=== PATIENT | male | born 1985 | race Hispanic/Latino ===

== ENCOUNTER 2018-12-18 10:34 | Inpatient (IN) | payer OTHER ==
[~2018-12-18] VITALS: Ht 177.8 cm; Wt 128.4 kg
--- OUTSIDE RECORDS SUMMARY | 2018-12-18 10:37 | XMS REPORT | Encounter Summary ---
Author Organization Unknown Address [address] [place] [address] Phone [phone] Care Team Providers Care Boat Builder Name Role Phone Nancy Cheung MD 3 [phone] Reason for Visit Medical Complaint Instructions 1. Acute tonsillitis Lidocaine Viscous 2 % mucosal solution rapid strep group A, throat tonsillitis: care instructions amoxicillin 500 mg tablet culture, respiratory 2. Influenza-like symptoms rapid flu (A+B) 3. Elevated blood-pressure reading without diagnosis of hypertension 4. Body mass index 40+ - severely obese Discussion Note Pt is in NAD; Verbalizes understanding of all instructions with no questions at this time. Plan of Care Patient Instructions Gargle and spit viscous lidocaine as needed for sore throat as directed. Alternate with Ibuprofen and acetaminophen every 4hrs as needed for pain/fever/headaches. Proper hydration and rest. Take antibiotics with food and recommend start a probiotic to avoid GI discomfort. Do not share any utensils/cups, no kissing and change toothbrush after 24-48 hrs of antibiotic use. Take medications as prescribed. Return to clinic or follow up with your PCP within 2-3 days if symptoms worsen as discussed. Recommend monitor BP at home and document, bring BP log to PCP for review. Recommend follow a low sodium diet and exercise 30-45 mins/d 3-4 days a week. Reminders Provider Appointments None recorded. Lab Rapid Flu (A+B) 09/06/2017 [facility] Rapid Strep Group a, Throat 09/06/2017 [facility] Culture, Respiratory 09/06/2017 [facility] Referral None recorded. Procedures None recorded. Surgeries None recorded. Imaging None recorded. Medications Name Start Date amoxicillin 500 mg tablet Take 1 tablet every 12 hours by oral route as directed for 10 days. Lidocaine Viscous 2 % mucosal solution Take 10 mL every 3 hours by oral route as needed. Medications Administered None recorded. Vitals Height Weight BMI Blood Pressure 5 ft 10 in 287 lbs 41.2 kg/m2 130/92 mm[Hg] Lab Results Date Name Specimen Result Interpretation Description Value Range Status Address 09/06/2017 Rapid Strep Group a, Throat Result negative [facility]: [facility] Swab Location Left and Right tonsillar pillars [facility]: [address] [place] [address] Rapid Flu (A+B) Influenza a negative [facility]: [address] [place] [address] Influenza B negative [facility]: [address] [place] [address] Allergies Code Code System Name Reaction Severity Status Onset NKDA Problems None recorded. Procedures Date Name Performed by Hernia Repair W/mesh Information not available Vaccine List Vaccine Type Tdap 08/10/2012 Social History Smoking Status Never Smoker Past Encounters 09/06/2017 Acute Tonsillitis; Influenza-like Symptoms; Elevated Blood-pressure Reading without Diagnosis of Hypertension; Body Mass Index 40+ - Severely Obese Barbara Calderon, [facility]: [address] [place] [address], Ph. History of Present Illness Throat-Oral Complaint Reported By: Patient HPI: Location: throat. Quality: sore throat. Severity: moderate, pain level 6/10. Duration: 2 days. Onset/Timing: sudden. Context: no sick contacts, no foreign travel, non-smoker. Modifying factors: OTC medication. Associated Symptoms: no fever, no headache, no body aches, no sputum production, no shortness of breath, no wheezing, no change in number of pillows needed to sleep at night, no sweats, no significant weight gain, no significant weight loss, no morning cough, no vomiting, no diarrhea, no rash, no nausea, sore throat; body aches Review of Systems:ROS as noted in the HPI Review of Systems Basic Reported By: Patient Physical Exam Adult Basic, 14-21 Yr Male, Adult Female Complete, Adult Male Complete Reported By: Patient Constitutional: General Appearance: obese. Level of Distress: NAD. Ambulation: ambulating normally Psychiatric: Mental Status: active and alert. Orientation: to time, to place, to person Wpd-Phkx-Hifkf-Throat: Ears: no lesions on external ear, no outer ear tenderness, EACs clear, TMs clear. Hearing: no hearing loss. Nose: no lesions on external nose, nares patent, no septal deviation, nasal passages clear, no sinus tenderness, no nasal discharge. Lips, Teeth, and Gums: no mouth or lip ulcers, no bleeding gums, normal dentition. Oropharynx: moist mucous membranes, no exudates, erythema, tonsils enlarged 3+ Neck: Lymph Nodes: no cervical LAD Lungs: Respiratory effort: no dyspnea, no tachypnea, no use of accessory muscles, no intercostal retractions. Auscultation: breath sounds normal Cardiovascular: Heart Auscultation: RRR, no murmurs Neurologic: Gait and Station: normal gait, normal station
--- OUTSIDE RECORDS SUMMARY | 2018-12-18 10:37 | XMS REPORT | Continuity of Care Document ---
Author Author [facility] Interface Address Unknown Phone Unavailable Problems Problem Status Onset Date Classification Date Reported Comments Source Acute tonsillitis 09/06/2017 Diagnosis 09/06/2017 [facility] Influenza-like symptoms 09/06/2017 Diagnosis 09/06/2017 [facility] Elevated blood-pressure reading without diagnosis of hypertension 09/06/2017 Diagnosis 09/06/2017 [facility] Body mass index 40+ - severely obese 09/06/2017 Diagnosis 09/06/2017 [facility] Medications Medication Details Route Status Patient Instructions Ordering Provider Order Date Source Amoxicillin 500 MG Oral Tablet amoxicillin 500 mg tablet Take 1 tablet every 12 hours by oral route as directed for 10 days. Active [facility] Lidocaine Hydrochloride 20 MG/ML Mucous Membrane Topical Solution Lidocaine Viscous 2 % mucosal solution Take 10 mL every 3 hours by oral route as needed. Active [facility] Allergies, Adverse Reactions, Alerts Substance Category Reaction Severity Reaction type Status Date Reported Comments Source Immunizations Immunization Date Given Site Status Last Updated Comments Source Tdap 08/10/2012 completed [facility] Results Order Name Results Value Reference Range Date Interpretation Comments Source RESULT negative 09/06/2017 [facility] SWAB LOCATION Left and Right tonsillar pillars 09/06/2017 [facility] Influenza A negative 09/06/2017 [facility] Influenza B negative 09/06/2017 [facility] Vital Signs Vital Sign Value Date Comments Source Diastolic (mm Hg) 92 09/06/2017 [facility] Height 70 09/06/2017 [facility] Systolic (mm Hg) 130 09/06/2017 [facility] Weight 287 09/06/2017 [facility] Encounters Location Location Details Encounter Type Encounter Number Reason For Visit Attending Provider ADM Date DC Date Status Source [place] - [facility] - [id number]_[id number] Calderon, [facility]-C: [address] [place] [address], Ph. [id number] Barbara Calderon 09/06/2017 [facility] Procedures Procedure Code Date Perfomer Comments Source Hernia Repair W/mesh [id number] [facility]
[2018-12-18] MEDS ORDERED: SODIUM CHLORIDE 0.9% 1000ML 1,000 ML IV STA ×2 (10:59→12:44)
[2018-12-18] MEDS ORDERED: SODIUM CHLORIDE 0.9% 1000ML 1,000 ML ONE (11:03)
[2018-12-18 11:10] LABS: BASOPHILS % 0.4 % (0.0-1.0); EOSINOPHILS # (AUTO) 0.2 (0.0-0.4); HEMATOCRIT 42.2 % (38.2-49.6); HEMOGLOBIN 14.9 g/dL (14.0-18.0); LYMPHOCYTES # (AUTO) 2.3 (1.0-3.2); LYMPHOCYTES % 27.2 % (18.0-39.1); MEAN CORPUSCULAR HEMOGLOBIN 29.6 pg (28-32); MEAN CORPUSCULAR HGB CONC 35.3 g/dL (31-35); MEAN CORPUSCULAR VOLUME 83.7 fL (81-99); MONOCYTES # (AUTO) 0.4 (0.2-0.8); MONOCYTES % 4.6 % (4.4-11.3); NEUTROPHILS # (AUTO) 5.6 (2.1-6.9); NEUTROPHILS % 65.4 % (38.7-80.0); PLATELET COUNT 201 x10e3/uL (140-360); RED BLOOD COUNT 5.04 x10e6/uL (4.3-5.7); RED CELL DISTRIBUTION WIDTH 13.6 % (11.7-14.4)
[2018-12-18 11:20] LABS: COLOR,URINE AMBER (YELLOW)
[2018-12-18 11:21] LABS: BILIRUBIN,URINE NEGATIVE (NEGATIVE); CLARITY,URINE HAZY (CLEAR); KETONES,URINE NEGATIVE (NEGATIVE); LEUKOCYTE ESTERASE ,URINE NEGATIVE (NEGATIVE); NITRITE,URINE NEGATIVE (NEGATIVE); PROTEIN,URINE DIPSTICK 2+ (NEGATIVE); URINE UROBILINOGEN 0.2 mg/dL (0.2 - 1)
[2018-12-18 11:33] LABS: INR 0.91; PARTIAL THROMBOPLASTIN TIME 30.5 seconds (23.8-35.5); PROTHROMBIN TIME 12.7 seconds (11.9-14.5)
[2018-12-18 11:39] LABS: BACTERIA,URINE FEW /HPF; EPITHELIAL CELLS,URINE FEW /LPF; RBC,URINE 0-5 /HPF (0-5)
[2018-12-18 11:43] LABS: ALANINE AMINOTRANSFERASE 184 IU/L (0-55); ALBUMIN 3.8 g/dL (3.5-5.0); ALBUMIN/GLOBULIN RATIO 1.2 (0.8-2.0); ALKALINE PHOSPHATASE 40 IU/L (40-150); BLOOD UREA NITROGEN 13 mg/dL (7-26); BUN/CREATININE RATIO 11 (6-25); CALCIUM 9.1 mg/dL (8.4-10.2); CARBON DIOXIDE 25 mmol/L (22-29); CHLORIDE 107 mmol/L (98-107); CREATININE, SERUM 1.22 mg/dL (0.72-1.25); EST GLOMERULAR FILTRATION RATE > 60 ML/MIN (60-); GLUCOSE 95 mg/dL (74-118); MAGNESIUM 2.3 MG/DL (1.3-2.1); SODIUM 140 mmol/L (136-145)
[2018-12-18 12:59] LABS: CREATINE KINASE 120954 IU/L (30-200)
[2018-12-18] MEDS ORDERED: AZITHROMYCIN 250 MG TAB PO ONE (13:00)
[2018-12-18] MEDS: CEFTRIAXONE SOD 1 GM/NS 50 ML 50 ML IV SCH (13:03)
[2018-12-18] MEDS ORDERED: MORPHINE SULFATE INJ 4 MG/ML INJ 1ML IV PRN (13:30)
[2018-12-18] MEDS ORDERED: ONDANSETRON HCL INJ 2MG/ML 2ML 2 MG/ML VIAL IV PRN (13:30)
[2018-12-18 13:55] VITALS: BP 151/75
--- NOTE | 2018-12-18 14:00 | NUR ---
Received pt 1355 from ER. Pt was admitted for rhabdomyolysis. Pt is aox4 and able to verbalize needs. Complains of pain to bilateral thighs but refusing pain medication at this time. Pt is able to ambulate with min assist. He is on IVF NS @ 200ml/hr and well tolerated. Skin is intact. 0 s/s of acute distress noted.
[2018-12-18] MEDS: SODIUM CHLORIDE 0.9% 1000ML 1,000 ML IV SCH ×3 (14:24→22:40)
[2018-12-18] MEDS ORDERED: INFLUENZA VIRUS VAC SPLIT INJ 0.5 ML SYR IM ONE (16:00)
--- NOTE | 2018-12-18 17:48 | NUR ---
Pt in bed. 0 s/s of acute distress noted. Continues on IVF@ 200ml/hr and well tolerated. Denies any pain at this time.
--- NOTE | 2018-12-18 19:25 | NUR ---
Completed bedside rounds with morning nurse. Pt alert and orient to name. Lying in bed HOB 30 degrees. Denies pain at this time. Call pimentel within reach. Will continue to monitor.
[2018-12-18 20:00] VITALS: BP 132/83
--- NOTE | 2018-12-18 20:05 | NUR ---
Blood drawn and taken to lab for cardiac markers, x1 stick, pt tolerated well.
[2018-12-18 20:50] LABS: CREATINE KINASE MB 7.2 ng/mL (0-5.0)
[2018-12-18 21:00] VITALS: BP 132/83
--- NOTE | 2018-12-18 21:50 | NUR ---
Report given to oncoming nurse. Pt alert and orient. Denies pain at this time. No acute distress noted.
--- NOTE | 2018-12-18 23:17 | NUR ---
Received critical lab value from lab, Dr. Case horta and order received, patient in stable condition, and ,will continue to monitor.
[2018-12-19] VITALS (8 sets, daily range): BP systolic 118–164; BP diastolic 56–97
--- NOTE | 2018-12-19 04:17 | NUR ---
Patient laying in bed with HOB slightly elevated. No sob noted. No acute distress noted. Patient in stable condition, will continue to monitor.
[2018-12-19] MEDS: SODIUM CHLORIDE 0.9% 1000ML 1,000 ML IV SCH ×4 (04:38→19:20)
[2018-12-19 06:04] LABS: BASOPHILS % 0.3 % (0.0-1.0); EOSINOPHILS # (AUTO) 0.3 (0.0-0.4); EOSINOPHILS % 3.4 % (0.0-6.0); HEMATOCRIT 40.8 % (38.2-49.6); HEMOGLOBIN 14.2 g/dL (14.0-18.0); LYMPHOCYTES # (AUTO) 2.4 (1.0-3.2); LYMPHOCYTES % 33.5 % (18.0-39.1); MEAN CORPUSCULAR HEMOGLOBIN 29.4 pg (28-32); MEAN CORPUSCULAR HGB CONC 34.8 g/dL (31-35); MEAN CORPUSCULAR VOLUME 84.5 fL (81-99); MONOCYTES # (AUTO) 0.4 (0.2-0.8); MONOCYTES % 5.9 % (4.4-11.3); NEUTROPHILS # (AUTO) 4.1 (2.1-6.9); NEUTROPHILS % 56.6 % (38.7-80.0); PLATELET COUNT 184 x10e3/uL (140-360); RED BLOOD COUNT 4.83 x10e6/uL (4.3-5.7); RED CELL DISTRIBUTION WIDTH 13.4 % (11.7-14.4)
[2018-12-19 06:34] LABS: ALANINE AMINOTRANSFERASE 173 IU/L (0-55); ALBUMIN 3.3 g/dL (3.5-5.0); ALBUMIN/GLOBULIN RATIO 1.1 (0.8-2.0); ALKALINE PHOSPHATASE 42 IU/L (40-150); ANION GAP 11.1 mmol/L (8-16); BLOOD UREA NITROGEN 8 mg/dL (7-26); BUN/CREATININE RATIO 7 (6-25); CALCIUM 8.9 mg/dL (8.4-10.2); CARBON DIOXIDE 26 mmol/L (22-29); CHLORIDE 108 mmol/L (98-107); CREATININE, SERUM 1.07 mg/dL (0.72-1.25); EST GLOMERULAR FILTRATION RATE > 60 ML/MIN (60-); GLUCOSE 90 mg/dL (74-118); POTASSIUM 4.1 mmol/L (3.5-5.1); SODIUM 141 mmol/L (136-145)
--- NOTE | 2018-12-19 07:30 | NUR ---
Pt in bed with eyes open. AOX4 and able to verbalize needs. Denies any pain at this time. Continues on IVf NS@200ml and well tolerated.
[2018-12-19] MEDS: CEFTRIAXONE SOD 1 GM/NS 50 ML 50 ML IV SCH (13:06)
--- NOTE | 2018-12-19 16:12 | History and Physical ---
SUBJECTIVE: This is a 33-year-old gentleman, who comes in with lower extremity pain, muscle weakness and tightness. HISTORY OF PRESENTING ILLNESS: Mr. Porter Patel is a 33-year-old gentleman with no medical history, was in usual state of health, and the patient went to [employer] has been regularly exercising at the [employer] The patient did extreme on a workout. The patient started with knee pain which was characteristic, could not bend his knee and also did not move and also could not touch the hamstrings or the quadriceps without being in total pain. The patient also noted that his urine was getting darker in color and the patient got concerned, came to the emergency room, and was found to have elevated CK levels, elevated transaminases and was admitted for rhabdomyolysis. PAST MEDICAL HISTORY: Nonsignificant. PAST SURGICAL HISTORY: Noncontributory. ALLERGIES: NO DRUG ALLERGIES. SOCIAL HISTORY: No EtOH. No IV drug abuse. No alcohol abuse. No smoking either. REVIEW OF SYSTEMS: Negative for chest pain. No shortness of breath. Positive for dysuria and oliguria. No nausea, vomiting, or diarrhea. No constipation. No rectal bleeding. No hematochezia. No hematemesis. Positive for abdominal pain and also for some muscle pains in the lower extremities. No diplopia. No blurry vision. PHYSICAL EXAMINATION: GENERAL: The patient is alert and oriented x3. HEENT: Normocephalic, atraumatic. Pupils are reactive to light and accommodation. CVS: S1, S2 normal. Regular rate and rhythm. ABDOMEN: Nontender, nondistended. EXTREMITIES: No clubbing, no cyanosis, no edema. MUSCULOSKELETAL: The patient is tender throughout his lower extremity muscles, quads, Hams and also soleus and gastrocnemius. The patient's upper extremity positive for tenderness in the shoulder too. LABORATORY VALUES: Initial white count is 8.47, hemoglobin of 14.9, hematocrit of 42.2. Chemistry; sodium of 140, potassium of 4.0, BUN of 13, creatinine of 1.22 with a GFR above 60. AST was 717, ALT was 184. Creatinine kinase 12,000,954, and CK was 11.10. Troponin has been negative so far. Patient's CK has trended down to 56,637 at this time and CK has been back to normal. The patient is on 200 mL an hour of fluids. The patient also had received 2 L of bolus in the ER. Creatinine level has been also trended down. ASSESSMENT: 1. Rhabdomyolysis. 2. Elevated transaminases. 3. Dehydration. 4. Myalgia. PLAN: Plan is to continue with IV fluids at this time. Follow through with creatine kinase in the morning and also with CK in the morning. Troponin will be trended until negative. Further recommendation per clinical course. Plan is to disposition and will be to discharge the patient tomorrow morning after CK has trended down and normalized. The patient has also additional information. The patient has been advised on physical activity and also on diminishing the amount of workup that he does. MD JENN Hernandez/JAYE /[id number]
--- NOTE | 2018-12-19 18:09 | NUR ---
Pt ambulating in hallway. Denies any pain at this time. 0 s/s of acute distress noted. aox4 breaths are even and unlabored.
--- NOTE | 2018-12-19 19:58 | NUR ---
INITIAL ASSESSMENT COMPLETE, PT IN BED, NO C/O PAIN, IV INTACT, NO EDEMA NOTED, NO SOB, TOLD TO CALL FOR NEEDS, CALL LIGHT IN REACH
--- NOTE | 2018-12-19 21:05 | NUR ---
PT UP IN SHOWER, LINEN CHANGED, PT BACK TO BED, IV INFUSING
[2018-12-20] VITALS (7 sets, daily range): BP systolic 107–157; BP diastolic 54–75
--- NOTE | 2018-12-20 06:44 | NUR ---
PT ASLEEP, AWAKE EASILY, CALL LIGHT IN REACH, VS STABLE,
[2018-12-20 07:10] LABS: CREATINE KINASE 31407 IU/L (30-200)
--- NOTE | 2018-12-20 07:15 | Progress Note ---
DATE: SUBJECTIVE: This is a 33-year-old gentleman, who comes in with rhabdomyolysis. The patient has had muscle pains, which is better right now. The patient is able to walk without any complaints. The patient has no chest pain. No shortness of breath. Good urine output. OBJECTIVE: VITAL SIGNS: Temperature is 97.8, pulse of 85, respirations of 18, blood pressure is 109/54. HEENT: Normocephalic, atraumatic. Pupils are reactive to light and accommodation. CVS: S1 and S2 normal. Regular rate and rhythm. ABDOMEN: Nontender, nondistended. EXTREMITIES: No clubbing, no cyanosis, no edema. MUSCULOSKELETAL SYSTEM: Decreased tenderness in the hamstrings and quadriceps. LABORATORY VALUES: Today's chemistries, CK still pending. Troponins are less than 0.01. The patient's ALT and AST are pending today. AST was 593, down from 717; ALT was 173, down from 184. HEMATOLOGY: None done today. ASSESSMENT: Rhabdomyolysis. The patient is awaiting repeat labs for rhabdo panel. We will also add a CMP to the panel to check LFTs. Further recommendation per clinical course. We will continue with IV fluids. More than likely, the patient can be discharged today, clinically much improved. MD JENN Hernandez/MODL /[id number]
[2018-12-20 07:24] LABS: ALANINE AMINOTRANSFERASE 188 IU/L (0-55); ALBUMIN 3.2 g/dL (3.5-5.0); ALKALINE PHOSPHATASE 38 IU/L (40-150); ANION GAP 12.1 mmol/L (8-16); BLOOD UREA NITROGEN 12 mg/dL (7-26); BUN/CREATININE RATIO 11 (6-25); CALCIUM 8.9 mg/dL (8.4-10.2); CARBON DIOXIDE 23 mmol/L (22-29); CHLORIDE 108 mmol/L (98-107); CREATININE, SERUM 1.12 mg/dL (0.72-1.25); EST GLOMERULAR FILTRATION RATE > 60 ML/MIN (60-); GLUCOSE 98 mg/dL (74-118); POTASSIUM 4.1 mmol/L (3.5-5.1); SODIUM 139 mmol/L (136-145)
--- NOTE | 2018-12-20 07:40 | NUR ---
PATIENT IN BED RESTING WITH EYES CLOSED, NO RESPIRATORY DISTRESS OBSERVED. BED IN LOWER POSITION, CALL LIGHT AT REACH.
[2018-12-20] MEDS: SODIUM CHLORIDE 0.9% 1000ML 1,000 ML IV SCH ×3 (08:50→20:35)
--- NOTE | 2018-12-20 11:29 | NUR ---
PATIENT OUT OF BED TO CHAIR WATCHING TV, NO CONCERN VOICED. CALL LIGHT AT REACH.
--- NOTE | 2018-12-20 15:10 | NUR ---
CALL PLACED TO MD REGARDING PATIENT'S ORDERED UP LABS RESULTS. MESSAGE LEFT, AWAITING CALL BACK
[2018-12-21] VITALS: BP 126/57
[2018-12-21] MEDS: SODIUM CHLORIDE 0.9% 1000ML 1,000 ML IV SCH (02:13)
[2018-12-21 02:34] VITALS: BP 132/74
[2018-12-21 04:00] VITALS: BP 146/70
[2018-12-21 06:19] LABS: BASOPHILS % 0.5 % (0.0-1.0); EOSINOPHILS # (AUTO) 0.3 (0.0-0.4); EOSINOPHILS % 4.6 % (0.0-6.0); HEMOGLOBIN 13.9 g/dL (14.0-18.0); LYMPHOCYTES # (AUTO) 2.1 (1.0-3.2); LYMPHOCYTES % 33.4 % (18.0-39.1); MEAN CORPUSCULAR HEMOGLOBIN 29.2 pg (28-32); MEAN CORPUSCULAR HGB CONC 33.9 g/dL (31-35); MEAN CORPUSCULAR VOLUME 86.1 fL (81-99); MONOCYTES # (AUTO) 0.3 (0.2-0.8); MONOCYTES % 5.3 % (4.4-11.3); NEUTROPHILS # (AUTO) 3.5 (2.1-6.9); NEUTROPHILS % 55.9 % (38.7-80.0); PLATELET COUNT 193 x10e3/uL (140-360); RED BLOOD COUNT 4.76 x10e6/uL (4.3-5.7); RED CELL DISTRIBUTION WIDTH 13.2 % (11.7-14.4)
[2018-12-21 06:43] LABS: ALANINE AMINOTRANSFERASE 173 IU/L (0-55); ALBUMIN 3.2 g/dL (3.5-5.0); ALKALINE PHOSPHATASE 37 IU/L (40-150); ANION GAP 10.4 mmol/L (8-16); BLOOD UREA NITROGEN 9 mg/dL (7-26); BUN/CREATININE RATIO 8 (6-25); CALCIUM 9.1 mg/dL (8.4-10.2); CARBON DIOXIDE 26 mmol/L (22-29); CHLORIDE 105 mmol/L (98-107); CREATININE, SERUM 1.06 mg/dL (0.72-1.25); EST GLOMERULAR FILTRATION RATE > 60 ML/MIN (60-); GLUCOSE 96 mg/dL (74-118); POTASSIUM 4.4 mmol/L (3.5-5.1); SODIUM 137 mmol/L (136-145)
[2018-12-21 07:25] VITALS: BP 124/75
--- NOTE | 2018-12-21 07:25 | NUR ---
PATIENT SITTING AT BED SIDE TALKING ON THE PHONE, NO DISTRESS NOTED. CALL LIGHT AT REACH.
[2018-12-21 07:59] VITALS: BP 124/75
--- NOTE | 2018-12-21 10:20 | NUR ---
PATIENT DISCHARGED HOME. DISCHARGE INSTRUCTIONS AND FOLLOW UP GIVEN TO PATIENT, HE VERBALIZED UNDERSTANDING. IV TO RIGHT AC REMOVED WITH TIP INTACT. ALL PERSONAL ITEMS TAKEN WITH PATIENT. REFUSED WHEEL CHAIR, BUT WAS ACCOMPANIED BY HOSPITAL STAFF TO FRONT LOBBY IN STABLE CONDITION.
--- NOTE | 2018-12-21 10:57 | Progress Note ---
DATE: SUBJECTIVE: The patient is admitted for rhabdomyolysis. The patient is asymptomatic. Pain is completely decreased. The patient also has elevated transaminases. OBJECTIVE: VITAL SIGNS: Temperature is 96.8, blood pressure is 146/70. HEENT: Normocephalic and atraumatic. Pupils are reactive to light and accommodation. CVS: S1, S2 normal. Regular rate and rhythm. ABDOMEN: Nontender and nondistended. EXTREMITIES: No clubbing, no cyanosis, no edema. The patient's tenderness in the muscles have decreased markedly. LABORATORY VALUES: Today's white count is 6.25, hemoglobin of 13.9 and hematocrit of 41.0. Sodium was 137, BUN of 9, creatinine of 1.06, AST 349, ALT 173, and alkaline phosphatase is 37. Creatine kinase is pending. Esterase is 31,407. ASSESSMENT: 1. Rhabdomyolysis. 2. Elevated transaminases levels. The patient can be discharged home to be followed up with primary care physician in about 5-6 days and the patient has been warned about this. No physical activity should be continued, especially rigorous exercises until CK has trended all the way down. The patient is asymptomatic and clinically improved. The patient can be discharged home today. Further recommendation and clinical course. Again, the patient was given strong warnings about exerting himself and also the need for following with his primary care physician, to follow up with his transaminase levels, and also his CK levels. MD JENN Hernandez/MODL /[id number]
== END 2018-12-21 10:16 | disposition home or self-care (01) | DRG 558 ==
LOC: ER 10:34 → ERHOLD 13:20 → MED/SURG3 13:59
PROVIDERS: ADMIT Family Medicine; ATTEND Family Medicine
DX: M62.82 Rhabdomyolysis (principal); E86.0 Dehydration; R74.0 Nonspecific elevation of levels of transaminase and lactic acid dehydrogenase [LDH]
CPT/HCPCS: 36415; 80053; 81001; 82550; 82553; 83735; 84484; 85025; 85610; 85730; 87086; 99284; J0696; J7030